=== PATIENT | female | born 1980 | race African-American/Black ===

== ENCOUNTER 2017-02-12 13:53 | Observation (INO) | payer OTHER ==
[~2017-02-12] VITALS: Ht 172.7 cm; Wt 57.4 kg
--- NOTE | ~2017-02-12 | EKG ---
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: PIPO : 1980 Requested By: Sandi Rudolph Order Number: [id number] MD: Eloy Burnett Measurements Intervals [place] Rate: 95 P: 67 [place]: 122 QRS: 36 QRSD: 89 T: 47 QT: 332 QTc: 418 Interpretive Statements Sinus rhythm No significant abnormality Baseline wander in lead(s) V3 No previous ECG available for comparison Electronically Signed On 02-14-2017 10:46:06 CDT by Eloy Burnett [email or web address] <ELECTRONICALLY SIGNED> By: Eloy Burnett MD, [facility] 02/14/17 1046 1440 1440 Eloy Burnett MD, [facility] /EPI
[~2017-02-12 13:53] MED LIST: BACTRIM DS TAB1 EACH PO; BENTYL 20 MG TA20 M1 PO; CARAFATE 1 GM TA1 G1 PO; IBUPROFEN 600600 M1 PO; ONDANSETRON HCL4 M2 PO; PENICILLIN V P500 MG PO; PEPCID20 MG PO; PHENERGAN 25 MG25 M1 PO; TRAMADOL 50 MG50 MG PO; TUMS PO; ZANTAC 150MG T150 MG PO
[2017-02-12 13:54] VITALS: BP 128/84
[2017-02-12 14:34] LABS: URINE BILIRUBIN NEGATIVE (Negative); URINE BLOOD NEGATIVE (Negative); URINE COLOR YELLOW; URINE GLUCOSE-RANDOM* NEGATIVE (Negative); URINE KETONES NEGATIVE (Negative); URINE NITRITE NEGATIVE (Negative); URINE PROTEIN (DIPSTICK) NEGATIVE (Negative); URINE UROBILINOGEN 0.2 E.U./dl (0.2-1.0)
[2017-02-12 14:43] LABS: AMP/METHAMP Negative (Negative); BARBITURATES Negative (Negative); BENZODIAZEPINES Negative (Negative); COCAINE Negative (Negative); METHADONE Negative (Negative); OPIATES Negative (Negative); PCP POSITIVE (Negative); THC Negative (Negative)
[2017-02-12 14:54] LABS: HEMATOCRIT 42.2 % (37.0-47.0); HEMOGLOBIN 14.5 gm/dL (12.0-15.0); MCH 31.3 pg (26.0-34.0); MCHC 34.4 g/dL (28.0-37.0); RBC 4.64 mil/uL (4.20-5.00); RDW 12.7 % (10.5-14.5); WBC 6.6 thou/uL (4.0-11.0)
[2017-02-12 15:05] LABS: ANION GAP 8 mmol/L (7-16); BUN 19 mg/dL (7-18); CHLORIDE 105 mmol/L (98-107); CO2 26 mmol/L (21-32); CREATININE 1.1 mg/dL (0.6-1.0); GLUCOSE 102 mg/dL (74-106); POTASSIUM 3.2 mmol/L (3.5-5.1); SODIUM 139 mmol/L (136-145)
[2017-02-12 15:09] LABS: ALKALINE PHOSPHATASE 68 U/L (46-116); SALICYLATE < 2.8 mg/dL (2.8-20.0); SGOT 95 U/L (15-37); SGPT 78 U/L (30-65); TOTAL BILIRUBIN 2.6 mg/dL (<0.1-1.0); TOTAL PROTEIN 7.4 g/dL (6.4-8.2)
[2017-02-12 15:10] LABS: ACETAMINOPHEN < 2 ug/mL (10-30)
[2017-02-12 23:22] LABS: DIRECT BILIRUBIN 0.4 mg/dL (<0.1-0.3); TOTAL BILIRUBIN 2.5 mg/dL (<0.1-1.0)
[2017-02-13 02:25] VITALS: BP 105/75
[2017-02-13 03:09] VITALS: BP 105/75
[2017-02-13 03:24] VITALS: BP 140/64
[2017-02-13 07:39] VITALS: BP 110/95
== END 2017-02-13 10:45 | disposition short-term general hospital (02) ==
LOC: ER 13:53 → EROBS 02-13 01:20 → 5S 02-13 02:27
PROVIDERS: Emergency Medicine; Physician Assistant
DX: F23 Brief psychotic disorder (principal); F19.10 Other psychoactive substance abuse, uncomplicated; F17.200 Nicotine dependence, unspecified, uncomplicated; E87.6 Hypokalemia; F41.9 Anxiety disorder, unspecified; Z72.89 Other problems related to lifestyle